=== PATIENT | male | born 1940 | race Caucasian/White ===

== ENCOUNTER → 2017-05-03 | Outpatient (CLI) | payer BC | END | disposition home or self-care (01) | LOC: C.LAB 10:34 | PROVIDERS: ATTEND Urology | DX: C61 Malignant neoplasm of prostate (principal) ==

== ENCOUNTER → 2017-05-15 | Outpatient (CLI) | payer BC ==
--- NOTE | 2017-05-15 14:36 | DIAGNOSTIC IMAGING REPORT ---
CHEST 2 VIEWS ROUTINE CLINICAL HISTORY: E11.9 Type 2 diabetes [id number] RjopsaitboeeG52.5 Hyper lipid dyspnea COMPARISON STUDY: No previous studies for comparison. FINDINGS: Mild emphysematous change. No focal infiltrate. No evidence for cardiac enlargement. Diaphragms are smooth. IMPRESSION: Mild emphysematous change. No acute process. The above report was generated using voice recognition software. It may contain grammatical, syntax or spelling errors. Electronically signed by: Ayden Borden M.D. 05/15/2017 2:35 PM Dictated Date/Time: 05/15/2017 2:33 PM
== END | disposition home or self-care (01) ==
LOC: C.RAD1850 14:21
PROVIDERS: ATTEND Internal Medicine Nephrology
DX: E11.9 Type 2 diabetes mellitus without complications (principal); E78.5 Hyperlipidemia, unspecified; E87.1 Hypo-osmolality and hyponatremia; I95.1 Orthostatic hypotension

== ENCOUNTER → 2017-05-16 | Outpatient (CLI) | payer BC ==
[2017-05-16 09:40] LABS: HEMATOCRIT 43.1 % (42-52); MEAN CORPUSCULAR HEMOGLOBIN 33.9 pg (25-34); MEAN CORPUSCULAR HGB CONC 34.6 g/dl (32-36); MEAN PLATELET VOLUME 9.9 fL (7.4-10.4); PLATELET COUNT 202 K/uL (130-400); WHITE BLOOD COUNT 3.96 K/uL (4.8-10.8)
[2017-05-16 09:41] LABS: URINE APPEARANCE CLEAR (CLEAR); URINE BILIRUBIN NEG (NEG); URINE COLOR YELLOW; URINE EPITHELIAL CELL AUTO 0-5 /lpf (0-5); URINE NITRITE NEG (NEG); URINE SPECIFIC GRAVITY 1.021 (1.000-1.030); UROBILINOGEN NEG (NEG)
[2017-05-16 09:49] LABS: ESTIMATED AVERAGE GLUCOSE 180 mg/dl; HA1C FLAG Normal (Normal)
[2017-05-16 09:55] LABS: MANUAL MICROSCOPIC REQUIRED? NO; REVIEW REQ? NO
[2017-05-16 09:56] LABS: ALT/SGPT 41 U/L (12-78); AST/SGOT 28 U/L (15-37); BLOOD UREA NITROGEN 23 mg/dl (7-18); CALCIUM 9.2 mg/dl (8.5-10.1); CARBON DIOXIDE 31 mmol/L (21-32); CHLORIDE 98 mmol/L (98-107); CHOLESTEROL 152 mg/dl (0-200); GLUCOSE 222 mg/dl (70-99); POTASSIUM 4.1 mmol/L (3.5-5.1); SODIUM 134 mmol/L (136-145); TRIGLYCERIDES 48 mg/dl (0-150); VERY LOW DENSITY LIPOPROT CALC 10 mg/dl
[2017-05-16 10:05] LABS: URINE PROTIEN/CREAT RATIO 0.1 (0-0.2); URINE TOTAL PROTEIN 13.1 mg/dl (0-11.9)
[2017-05-16 10:11] LABS: ALB/GLOB RATIO 0.8 (0.9-2); ALKALINE PHOSPHATASE 58 U/L (45-117); CHOLESTEROL/HDL RATIO 1.8; HDL CHOLESTEROL 85 mg/dl; LDL CHOLESTEROL CALCULATED 57 mg/dl
--- NOTE | 2017-05-22 10:00 | CODING QUERY MEDICAL NECESSITY ---
SUPPORTING DIAGNOSIS NEEDED Dr. Davison, A supporting diagnosis is required for the test/procedure performed on this patient in order for us to be reimbursed by the patient's insurance. Please provide a supporting diagnosis for the following test/procedure listed below next to the test name along with your signature. *If there is no additional diagnosis for this patient that would support the following test/procedure please document that below next to the test/procedure. Test(s)/Procedure(s) that require a supporting diagnosis: * ([id number]) VITAMIN D ASSAY DIAGNOSIS: DATE OF SERVICE: 05/16/17 Provider Signature: Date: Thank you Talon Ramos [facility] Information Management Once completed, please kindly fax back to [phone] For questions please call [phone]
== END | disposition home or self-care (01) ==
LOC: C.LAB1850 06:50
PROVIDERS: ATTEND Internal Medicine Nephrology
DX: E11.9 Type 2 diabetes mellitus without complications (principal); E87.1 Hypo-osmolality and hyponatremia; E78.5 Hyperlipidemia, unspecified; I95.1 Orthostatic hypotension; E55.9 Vitamin D deficiency, unspecified

== ENCOUNTER → 2017-05-17 | Outpatient (CLI) | payer BC ==
--- NOTE | 2017-05-17 08:58 | DIAGNOSTIC IMAGING REPORT ---
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 TECHNIQUE: Real-time grayscale and limited color Doppler ultrasound imaging of the kidneys and bladder was performed. COMPARISON: None. FINDINGS: Right kidney: Normal echogenicity. Right kidney measures 10.0 cm. No hydronephrosis. No convincing evidence of calculus or mass. Normal perfusion. Left kidney: Normal echogenicity. Left kidney measures 10.9 cm. No hydronephrosis. No convincing evidence of calculus or mass. Normal perfusion. Bladder: No bladder wall thickening. Bilateral ureteral jets present. Other: None. IMPRESSION: 1. Normal renal ultrasound. No obstruction. Electronically signed by: Lazaro Claros M.D. 05/17/2017 8:57 AM Dictated Date/Time: 05/17/2017 8:50 AM
== END | disposition home or self-care (01) ==
LOC: C.ULTRBC 08:22
PROVIDERS: ATTEND Internal Medicine Nephrology
DX: I95.1 Orthostatic hypotension (principal); E78.5 Hyperlipidemia, unspecified; E87.1 Hypo-osmolality and hyponatremia; E11.9 Type 2 diabetes mellitus without complications

== ENCOUNTER → 2017-06-12 | Outpatient (CLI) | payer BC | END | disposition home or self-care (01) | LOC: C.MAMM 07:46 | PROVIDERS: ATTEND Specialist | DX: M81.0 Age-related osteoporosis without current pathological fracture (principal) ==

== ENCOUNTER → 2017-06-21 | Outpatient (CLI) | payer BC ==
[2017-06-21 09:55] LABS: ESTIMATED AVERAGE GLUCOSE 177 mg/dl; HA1C FLAG Normal (Normal)
[2017-06-21 10:09] LABS: ALT/SGPT 32 U/L (12-78); AST/SGOT 23 U/L (15-37); BLOOD UREA NITROGEN 21 mg/dl (7-18); BUN/CREATININE RATIO 21.1 (10-20); CALCIUM 9.1 mg/dl (8.5-10.1); CARBON DIOXIDE 31 mmol/L (21-32); CHLORIDE 100 mmol/L (98-107); GLUCOSE 170 mg/dl (70-99); POTASSIUM 4.5 mmol/L (3.5-5.1); SODIUM 136 mmol/L (136-145)
[2017-06-21 10:17] LABS: ALB/GLOB RATIO 0.8 (0.9-2); ALKALINE PHOSPHATASE 60 U/L (45-117); CHOLESTEROL 133 mg/dl (0-200); CHOLESTEROL/HDL RATIO 1.6; HDL CHOLESTEROL 81 mg/dl; LDL CHOLESTEROL CALCULATED 42 mg/dl; TRIGLYCERIDES 49 mg/dl (0-150); VERY LOW DENSITY LIPOPROT CALC 10 mg/dl
== END | disposition home or self-care (01) ==
LOC: C.LAB1850 06:49
PROVIDERS: ATTEND Specialist
DX: E16.2 Hypoglycemia, unspecified (principal); E87.1 Hypo-osmolality and hyponatremia; G45.9 Transient cerebral ischemic attack, unspecified; E78.5 Hyperlipidemia, unspecified; Z85.46 Personal history of malignant neoplasm of prostate; M81.0 Age-related osteoporosis without current pathological fracture; E10.9 Type 1 diabetes mellitus without complications

== ENCOUNTER → 2017-08-30 | Outpatient (CLI) | payer BC ==
[2017-08-30 09:33] LABS: MEAN CELL VOLUME 97.7 fL (80-100); MEAN CORPUSCULAR HEMOGLOBIN 33.2 pg (25-34); MEAN PLATELET VOLUME 10.3 fL (7.4-10.4); PLATELET COUNT 198 K/uL (130-400); WHITE BLOOD COUNT 4.95 K/uL (4.8-10.8)
[2017-08-30 09:38] LABS: URINE APPEARANCE CLEAR (CLEAR); URINE BILIRUBIN NEG (NEG); URINE COLOR YELLOW; URINE EPITHELIAL CELL AUTO 0-5 /lpf (0-5); URINE NITRITE NEG (NEG); URINE SPECIFIC GRAVITY 1.018 (1.000-1.030); UROBILINOGEN NEG (NEG)
[2017-08-30 09:42] LABS: MANUAL MICROSCOPIC REQUIRED? NO; REVIEW REQ? NO
[2017-08-30 09:46] LABS: ALT/SGPT 29 U/L (12-78); AST/SGOT 23 U/L (15-37); BLOOD UREA NITROGEN 22 mg/dl (7-18); BUN/CREATININE RATIO 21.3 (10-20); CALCIUM 8.7 mg/dl (8.5-10.1); CARBON DIOXIDE 30 mmol/L (21-32); CHLORIDE 98 mmol/L (98-107); CREATININE 1.03 mg/dl (0.60-1.40); GLUCOSE 192 mg/dl (70-99); POTASSIUM 4.6 mmol/L (3.5-5.1); SODIUM 130 mmol/L (136-145)
[2017-08-30 09:51] LABS: ALB/GLOB RATIO 0.8 (0.9-2); ALKALINE PHOSPHATASE 58 U/L (45-117)
[2017-08-30 10:27] LABS: URINE PROTIEN/CREAT RATIO 0.1 (0-0.2); URINE TOTAL PROTEIN 9.9 mg/dl (0-11.9)
== END | disposition home or self-care (01) ==
LOC: C.LAB1850 06:50
PROVIDERS: ATTEND Internal Medicine Nephrology
DX: R60.9 Edema, unspecified (principal); E87.1 Hypo-osmolality and hyponatremia; E22.2 Syndrome of inappropriate secretion of antidiuretic hormone; I95.1 Orthostatic hypotension

== ENCOUNTER → 2017-10-11 | Outpatient (CLI) | payer BC ==
--- NOTE | 2017-10-11 15:52 | DIAGNOSTIC IMAGING REPORT ---
CERVICAL SPINE 2 OR 3 VIEWS CLINICAL HISTORY: M81.0 [id number] Neck [id number] COMPARISON STUDY: No previous studies for comparison. FINDINGS: The bones are osteopenic. 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 There is a reversal normal cervical lordosis. There are multilevel degenerative changes present. No fractures are visualized on conventional radiographic evaluation. IMPRESSION: 1. Osteopenia 2. Moderate kyphoscoliosis 3. Multilevel degenerative change Electronically signed by: Fede Vazquez M.D. 10/11/2017 3:50 PM Dictated Date/Time: 10/11/2017 3:49 PM
== END | disposition home or self-care (01) ==
LOC: C.RAD1850 15:34
PROVIDERS: ATTEND Nurse Practitioner Adult Health
DX: M47.812 Spondylosis without myelopathy or radiculopathy, cervical region (principal); M81.0 Age-related osteoporosis without current pathological fracture; M85.88 Other specified disorders of bone density and structure, other site; M41.9 Scoliosis, unspecified

== ENCOUNTER → 2017-10-16 | Outpatient (CLI) | payer BC ==
[2017-10-16 10:24] LABS: ALBUMIN 3.5 gm/dl (3.4-5.0); BLOOD UREA NITROGEN 19 mg/dl (7-18); CALCIUM 9.1 mg/dl (8.5-10.1); CARBON DIOXIDE 29 mmol/L (21-32); CREATININE 1.17 mg/dl (0.60-1.40); GLUCOSE 167 mg/dl (70-99); POTASSIUM 4.6 mmol/L (3.5-5.1); SODIUM 130 mmol/L (136-145)
[2017-10-16 10:33] LABS: ALBUMIN 3.4 gm/dl (3.4-5.0); ALT/SGPT 39 U/L (12-78); AST/SGOT 27 U/L (15-37); BLOOD UREA NITROGEN 20 mg/dl (7-18); CALCIUM 9.3 mg/dl (8.5-10.1); CARBON DIOXIDE 30 mmol/L (21-32); CREATININE 1.09 mg/dl (0.60-1.40); GLUCOSE 172 mg/dl (70-99); HEMOGLOBIN A1C 8.1 % (4.5-5.6); POTASSIUM 4.4 mmol/L (3.5-5.1); SODIUM 129 mmol/L (136-145)
[2017-10-16 10:40] LABS: ALKALINE PHOSPHATASE 74 U/L (45-117); CHOLESTEROL 134 mg/dl (0-200); LDL CHOLESTEROL CALCULATED 51 mg/dl; TOTAL PROTEIN 8.7 gm/dl (6.4-8.2)
[2017-10-16 10:48] LABS: PHOSPHORUS 3.3 mg/dl (2.5-4.9)
== END | disposition home or self-care (01) ==
LOC: C.LAB1850 07:02
PROVIDERS: ATTEND Internal Medicine Nephrology
DX: E16.2 Hypoglycemia, unspecified (principal); E87.1 Hypo-osmolality and hyponatremia; G45.9 Transient cerebral ischemic attack, unspecified; E78.5 Hyperlipidemia, unspecified; Z85.46 Personal history of malignant neoplasm of prostate; M81.0 Age-related osteoporosis without current pathological fracture; E10.9 Type 1 diabetes mellitus without complications; C61 Malignant neoplasm of prostate

== ENCOUNTER → 2017-11-09 | Outpatient (CLI) | payer BC ==
[~2017-11-09] MED LIST: GADAVIST IV PRN
--- NOTE | 2017-11-09 08:59 | DIAGNOSTIC IMAGING REPORT ---
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 The midline structures including the corpus callosum, brainstem, infundibulum, pituitary gland, optic chiasm and pineal gland appear unremarkable the sagittal T1 images. No cerebellar tonsillar herniation. Degenerative changes of the imaged cervical spine. There is no acute intracranial hemorrhage, midline shift, abnormal extra-axial collections, hydrocephalus or intracranial mass. Mild atrophy with ex vacuo ventriculomegaly. There are a few scattered areas of T2/FLAIR prolongation within the periventricular and subcortical white matter suggesting minimal chronic microvascular ischemic changes. The major flow voids at the level of the skull base appear patent and unremarkable. Mastoid air cells are clear. Mild mucoperiosteal thickening of the maxillary and ethmoid sinuses. Orbits, scalp and calvarium appear unremarkable. The bilateral internal auditory canals appear to be within normal limits without focal mass or abnormal enhancement. 7th and 8th cranial nerves are within normal limits. No cerebellar pontine angle mass identified. The cisternal portion of the trigeminal nerves appear to be within normal limits bilaterally. There is no abnormal intra-axial or extra-axial enhancement identified. IMPRESSION: 1. No acute intracranial abnormality identified. No acute infarction or abnormal enhancement. 2. Normal appearance of the bilateral internal auditory canals, 7th and 8th cranial nerves. 3. Mild atrophy with minimal chronic microvascular ischemic changes. 4. Mild paranasal sinus disease. The above report was generated using voice recognition software. It may contain grammatical, syntax or spelling errors. Electronically signed by: Mario Rasheed M.D. 11/09/2017 8:58 AM Dictated Date/Time: 11/09/2017 8:52 AM
== END | disposition home or self-care (01) ==
LOC: C.MRIBC 07:47
DX: H90.5 Unspecified sensorineural hearing loss (principal)

== ENCOUNTER → 2017-11-18 | Outpatient (CLI) | payer BC ==
[2017-11-18 10:39] LABS: ALBUMIN 3.5 gm/dl (3.4-5.0); BLOOD UREA NITROGEN 28 mg/dl (7-18); CALCIUM 8.9 mg/dl (8.5-10.1); CARBON DIOXIDE 32 mmol/L (21-32); CREATININE 1.15 mg/dl (0.60-1.40); GLUCOSE 158 mg/dl (70-99); POTASSIUM 3.9 mmol/L (3.5-5.1); SODIUM 133 mmol/L (136-145)
[2017-11-18 10:40] LABS: PHOSPHORUS 3.2 mg/dl (2.5-4.9)
== END | disposition home or self-care (01) ==
LOC: C.LAB1850 07:53
PROVIDERS: ATTEND Internal Medicine Nephrology
DX: R60.9 Edema, unspecified (principal); E22.2 Syndrome of inappropriate secretion of antidiuretic hormone

== ENCOUNTER → 2018-01-05 | Outpatient (CLI) | payer BC ==
[~2018-01-05] MED LIST changes: +ATOR10TA82 PO; +CLOP1TAB15 PO; +COEN1CAP PO; +DENO60SO SQ; +FURO-85 PO; -GADAVIST IV PRN; +INSPMPNVLG; +METRONIDAZOLE TOP; +MULT-1093 PO; +SODI1GRA11 PO
[2018-01-05 10:03] LABS: HEMOGLOBIN A1C 7.8 % (4.5-5.6)
[2018-01-05 10:13] LABS: T3 FREE 2.86 pg/ml (2.30-4.20)
== END | disposition home or self-care (01) ==
LOC: C.LAB1850 06:52
PROVIDERS: ATTEND Specialist
DX: E16.2 Hypoglycemia, unspecified (principal); E87.1 Hypo-osmolality and hyponatremia; G45.9 Transient cerebral ischemic attack, unspecified; E78.5 Hyperlipidemia, unspecified; Z85.46 Personal history of malignant neoplasm of prostate; M81.0 Age-related osteoporosis without current pathological fracture; E10.9 Type 1 diabetes mellitus without complications

== ENCOUNTER → 2018-01-19 | Outpatient (CLI) | payer BC ==
[2018-01-19 09:31] LABS: HEMATOCRIT 42.1 % (42-52); HEMOGLOBIN 14.3 g/dL (14.0-18.0); MEAN CELL VOLUME 97.9 fL (80-100); MEAN CORPUSCULAR HEMOGLOBIN 33.3 pg (25-34); MEAN PLATELET VOLUME 9.9 fL (7.4-10.4); PLATELET COUNT 209 K/uL (130-400); RED CELL DISTRIBUTION WIDTH SD 49.8 fL (36.4-46.3); WHITE BLOOD COUNT 4.48 K/uL (4.8-10.8)
[2018-01-19 09:48] LABS: ALBUMIN 3.5 gm/dl (3.4-5.0); ALT/SGPT 25 U/L (12-78); AST/SGOT 21 U/L (15-37); BLOOD UREA NITROGEN 25 mg/dl (7-18); CALCIUM 8.9 mg/dl (8.5-10.1); CARBON DIOXIDE 32 mmol/L (21-32); CREATININE 1.18 mg/dl (0.60-1.40); GLUCOSE 186 mg/dl (70-99); SODIUM 136 mmol/L (136-145)
[2018-01-19 09:52] LABS: ALKALINE PHOSPHATASE 57 U/L (45-117); TOTAL PROTEIN 7.7 gm/dl (6.4-8.2)
[2018-01-19 12:24] LABS: OSMOLALITY,URINE 399 mOms/kg (500-800)
== END | disposition home or self-care (01) ==
LOC: C.LAB1850 06:53
PROVIDERS: ATTEND Internal Medicine Nephrology
DX: R60.9 Edema, unspecified (principal); E87.1 Hypo-osmolality and hyponatremia; F22 Delusional disorders; E22.2 Syndrome of inappropriate secretion of antidiuretic hormone

== ENCOUNTER → 2018-02-20 | Outpatient (CLI) | payer BC ==
[~2018-02-20] MED LIST changes: -METRONIDAZOLE TOP
[2018-02-20 09:45] LABS: HEMATOCRIT 42.4 % (42-52); HEMOGLOBIN 14.8 g/dL (14.0-18.0); MEAN CELL VOLUME 98.4 fL (80-100); MEAN CORPUSCULAR HEMOGLOBIN 34.3 pg (25-34); MEAN CORPUSCULAR HGB CONC 34.9 g/dl (32-36); MEAN PLATELET VOLUME 10.2 fL (7.4-10.4); PLATELET COUNT 185 K/uL (130-400); RED CELL DISTRIBUTION WIDTH CV 13.6 % (11.5-14.5); RED CELL DISTRIBUTION WIDTH SD 48.9 fL (36.4-46.3); WHITE BLOOD COUNT 4.77 K/uL (4.8-10.8)
[2018-02-20 09:58] LABS: ALBUMIN 3.6 gm/dl (3.4-5.0); BLOOD UREA NITROGEN 28 mg/dl (7-18); CALCIUM 8.7 mg/dl (8.5-10.1); CARBON DIOXIDE 31 mmol/L (21-32); GLUCOSE 234 mg/dl (70-99); PHOSPHORUS 3.4 mg/dl (2.5-4.9); POTASSIUM 4.2 mmol/L (3.5-5.1); SODIUM 134 mmol/L (136-145)
[2018-02-20 11:46] LABS: OSMOLALITY,URINE 346 mOms/kg (500-800)
== END | disposition home or self-care (01) ==
LOC: C.LAB1850 06:56
PROVIDERS: ATTEND Internal Medicine Nephrology
DX: H61.22 Impacted cerumen, left ear (principal); C61 Malignant neoplasm of prostate; E22.2 Syndrome of inappropriate secretion of antidiuretic hormone; R60.9 Edema, unspecified